=== PATIENT | male | born 1995 | race Caucasian/White ===

== ENCOUNTER 2017-01-29 19:25 | Emergency (ER) | payer OTHER ==
[2017-01-29 19:43] VITALS: BP 130/72
[2017-01-29] MEDS ORDERED: Acetaminophen/Codeine 300-30 MG Tab PO ONE (20:09)
--- NOTE | 2017-01-30 03:28 | ER ---
DATE SEEN: 01/29/2017 CHIEF COMPLAINT: Hand injury. HISTORY OF PRESENT ILLNESS: A 21-year-old male who had his right hand caught between 2 implements, complains of pain on movement. This happened about an hour ago. Any movement makes it worse. REVIEW OF SYSTEMS: No other injuries. ALLERGIES: No known allergies. PHYSICAL EXAMINATION: VITAL SIGNS: Blood pressure is normal, pulse is 84, and temperature 97.3. EXTREMITIES: Right hand showed moderate swelling at the dorsum. There is tenderness around the second metacarpal, but the wrist had full range of motion and he had normal capillary refills. DIAGNOSTIC STUDIES: X-ray to my interpretation was negative. IMPRESSION: Injury, soft tissue, right hand. PLAN: 1. Ice, rest, ibuprofen. 2. Tramadol 50 mg t.i.d. p.r.n. TIME SEEN: 8 p.m. /[id number] DYAN/AMY
--- NOTE | 2017-02-02 11:17 | CR ---
INDICATION: Injury, pain, swelling. COMPARISON: None. RIGHT HAND SERIES: Mild obliquity of lateral view precludes optimal evaluation for subtle pathology. No acute fracture, dislocation, destructive change. No inflammatory, arthritic change. IMPRESSION: No evidence of acute osseous pathology. MTDD
== END 2017-01-29 20:16 | disposition home or self-care (01) ==
LOC: FB.ED 19:25
DX: S69.91XA Unspecified injury of right wrist, hand and finger(s), initial encounter (principal); W23.0XXA Caught, crushed, jammed, or pinched between moving objects, initial encounter
CPT/HCPCS: 73130; 99283; A9270